=== PATIENT | female | born 1985 | race Two or more races ===

== ENCOUNTER 2020-09-04 10:14 | Emergency (ER) | payer MEDICAID ==
[~2020-09-04] VITALS: Ht 152.4 cm; Wt 77.1 kg
[2020-09-04] MEDS ORDERED: ONDANSETRON HCL/PF 4 MG/2 ML VIAL ONE (10:27)
[2020-09-04] MEDS ORDERED: MORPHINE SULFATE INJ 4 MG/ML DISP.SYRIN ONE (10:27)
[2020-09-04] MEDS ORDERED: ONDANSETRON HCL/PF 4 MG/2 ML VIAL IVP ONE (10:30)
[2020-09-04] MEDS ORDERED: MORPHINE SULFATE INJ 2 MG/ML DISP.SYRIN IV ONE (10:30)
[2020-09-04] MEDS ORDERED: IV NS 0.9% 1,000 ML BAG IV ONE (10:30)
--- NOTE | 2020-09-04 10:30 | NUR ---
PT BIB SELF C/O ABD PAIN X1 WEEK. DENIES N/V. VS CHECKED. SEEN BY .
[2020-09-04 10:38] LABS: BILIRUBIN,URINE NEGATIVE (NEGATIVE); BLOOD, URINE NEGATIVE Ery/uL (NEGATIVE); COLOR,URINE YELLOW (YELLOW); LEUKOCYTE ESTERASE ,URINE NEGATIVE (NEGATIVE); NITRITE, URINE NEGATIVE (NEGATIVE); PH,URINE 6.5 (5.0-8.0); PROTEIN,URINE NEGATIVE (NEGATIVE); UGLUCOSE NEGATIVE (NEGATIVE); UROBILINOGEN,URINE 0.2 EU/dL (0.2)
--- NOTE | 2020-09-04 10:40 | NUR ---
URINE COLLECTED SENT TO LAB
[2020-09-04 10:48] LABS: BASOPHILS # (AUTO) 0.1 /CMM (0.0-0.2); BASOPHILS % (AUTO) 0.8 % (0.0-2.0); EOSINOPHILS % (AUTO) 4.1 % (0.0-6.0); HEMATOCRIT 39 % (33-45); HEMOGLOBIN 12.8 g/dL (11.5-14.8); LYMPHOCYTES # (AUTO) 2.2 /CMM (0.8-4.8); LYMPHOCYTES % (AUTO) 31.4 % (20.0-44.0); MEAN CORPUSCULAR HGB CONC 33 g/dl (31.0-36.0); MEAN CORPUSCULAR VOLUME 84 fL (82-100); MONOCYTES # (AUTO) 0.4 /CMM (0.1-1.30); MONOCYTES % (AUTO) 5.1 % (2.0-12.0); NEUTROPHILS # (AUTO) 4.1 /CMM (1.8-8.9); NEUTROPHILS % (AUTO) 58.6 % (43.0-81.0); PLATELET COUNT (AUTO) 230 /CMM (150-450); RED BLOOD CELL COUNT(AUTO) 4.58 MIL/uL (4.0-5.2)
[2020-09-04 11:10] LABS: ALBUMIN 3.7 g/dL (3.4-5.0); BILIRUBIN,TOTAL 0.2 mg/dL (0.2-1.0); CALCIUM, SERUM 8.8 mg/dL (8.5-10.1); CREATININE 0.7 mg/dL (0.6-1.3); POTASSIUM 3.8 mmol/L (3.5-5.1); TOTAL PROTEIN, SERUM 7.5 g/dL (6.4-8.2)
[2020-09-04 12:27] VITALS: BP 129/72
--- NOTE | 2020-09-04 12:27 | NUR ---
Patient discharged to home in stable condition. Written and verbal after care instructions given. Patient verbalizes understanding of instruction. IV removed. Catheter intact and site benign. Pressure and 4x4 applied to site. No bleeding noted.
== END 2020-09-04 12:27 | disposition home or self-care (01) ==
LOC: ER 10:23
DX: R10.31 Right lower quadrant pain (principal)
CPT/HCPCS: 36415; 74176; 80048; 80076; 81001; 84703; 85025; 96361; 96374; 96375; 99284; J2270; J2405; J7030

== ENCOUNTER 2020-09-11 02:20 | Emergency (ER) | payer MEDICAID ==
--- NOTE | 2020-09-11 02:25 | NUR ---
CALLED PT FOR TRIAGE, WAS MADE AWARE OF SECURITY THAT PT WENT TO THE BATHROOM.
--- NOTE | 2020-09-11 02:31 | NUR ---
CALLED PT FOR ROD, NO ANSWER.
--- NOTE | 2020-09-11 02:35 | NUR ---
CALLED PT FOR ROD, NO ANSWER.
--- NOTE | 2020-09-11 02:40 | NUR ---
CALLED PT FOR ROD, NO ANSWER.
--- NOTE | 2020-09-11 02:44 | NUR ---
CALLED PT FOR ROD, NO ANSWER.
--- NOTE | 2020-09-11 02:50 | NUR ---
CALLED PT FOR ROD, NO ANSWER.
--- NOTE | 2020-09-11 03:16 | NUR ---
PT NOT IN WAITING ROOM FOR TRIAGE. PT LEFT WITHOUT BEING TRIAGED.
== END 2020-09-11 03:20 | disposition home or self-care (01) ==
LOC: ER 02:22
DX: Z53.21 Procedure and treatment not carried out due to patient leaving prior to being seen by health care provider (principal)

== ENCOUNTER 2022-05-28 15:27 | Emergency (ER) | payer MEDICAID ==
[~2022-05-28] VITALS: Ht 162.6 cm; Wt 75.7 kg
[2022-05-28] MEDS ORDERED: IBUPROFEN 600 MG TABLET PO ONE (16:00)
[2022-05-28] MEDS ORDERED: IBUPROFEN 600 MG TABLET ONE (16:04)
[2022-05-28 16:07] VITALS: BP 112/70
== END 2022-05-28 16:08 | disposition home or self-care (01) ==
LOC: ER 15:34
DX: H00.015 Hordeolum externum left lower eyelid (principal); R51.9 Headache, unspecified; Z86.011 Personal history of benign neoplasm of the brain; Z98.2 Presence of cerebrospinal fluid drainage device